=== PATIENT | male | born 1970 | race African-American/Black ===

== ENCOUNTER 2023-02-27 12:33 | Inpatient (IN) | payer OTHER ==
[2023-02-27 14:59] VITALS: BMI 26.9
[2023-02-27] MEDS ORDERED: NALOXONE HCL 0.4 MG/ML VIAL IM PRN (15:22)
[2023-02-27] MEDS ORDERED: BENZONATATE 200 MG CAPSULE PO PRN (15:22)
[2023-02-27] MEDS ORDERED: IBUPROFEN 600 MG TABLET (FP) PO PRN (15:22)
[2023-02-27] MEDS ORDERED: LOPERAMIDE HCL 2 MG CAPSULE PO PRN (15:22)
[2023-02-27] MEDS ORDERED: MAGNESIUM HYDROX 2400MG/30ML ORAL SUSPENSION 30 ML CUP PO PRN (15:22)
[2023-02-27] MEDS ORDERED: POLYETHYLENE GLYCOL (HEALTHYLAX) 3350 17 GM PACKET PO PRN (15:22)
[2023-02-27] MEDS ORDERED: chlordiazePOXIDE HCL 25 MG CAPSULE PO PRN (15:22)
[2023-02-27] MEDS ORDERED: guaiFENesin 600 MG TABLET.ER (FP) PO PRN (15:22)
[2023-02-27] MEDS ORDERED: DICYCLOMINE HCL 10 MG CAPSULE PO PRN (15:22)
[2023-02-27] MEDS ORDERED: BENZOCAINE/MENTHOL (CHLORASEPTIC ) LOZENGE MM PRN (15:22)
[2023-02-27] MEDS ORDERED: ONDANSETRON *ODT* 4 MG TABLET SL PRN (15:22)
[2023-02-27] MEDS ORDERED: IBUPROFEN 400 MG TABLET (FP) PO PRN (15:22)
[2023-02-27] MEDS ORDERED: NALOXONE HCL (KLOXXADO) 8 MG SPRAY NS PRN (15:22)
[2023-02-27] MEDS ORDERED: BISMUTH SUBSALICYLATE 524 MG/30 ML PO PRN (15:22)
[2023-02-27] MEDS ORDERED: NICOTINE POLACRILEX 2 MG GUM BUC PRN (15:22)
[2023-02-27] MEDS ORDERED: MAG HYDROX/AL HYDROX/SIMETH 30 ML UNIT-DOSE CUP PO PRN (15:22)
[2023-02-27] MEDS ORDERED: chlordiazePOXIDE HCL 25 MG CAPSULE ONE (16:40)
[2023-02-27] MEDS: chlordiazePOXIDE HCL 25 MG CAPSULE PO SCH ×2 (16:45→22:19)
[2023-02-27] MEDS: amLODIPine BESYLATE 5 MG TABLET (FP) PO SCH (17:38)
[2023-02-27] MEDS: ACETAMINOPHEN 325 MG TABLET (FP) PO PRN (17:39)
[2023-02-27] MEDS: MELATONIN 5 MG TABLETS PO SCH (22:18)
[2023-02-27] MEDS: THIAMINE HCL 100 MG TABLET (FP) PO SCH (22:18)
[2023-02-28] MEDS: chlordiazePOXIDE HCL 25 MG CAPSULE PO SCH ×4 (05:20→22:06)
[2023-02-28] MEDS: amLODIPine BESYLATE 5 MG TABLET (FP) PO SCH (10:19)
[2023-02-28] MEDS: PRENATAL VITAMINS W/ FOLIC ACID TABLET (FP) PO SCH (10:19)
[2023-02-28] MEDS: LISINOPRIL 20 MG TABLET PO SCH (10:19)
[2023-02-28] MEDS: LORATADINE 10 MG TABLET PO SCH (10:19)
[2023-02-28 11:42] LABS: POTASSIUM 4.1 mmol/L (3.5-5.1)
[2023-02-28] MEDS: CITALOPRAM HYDROBROMIDE 20 MG TABLET PO SCH (11:43)
[2023-02-28 11:48] LABS: ALBUMIN 3.2 g/dl (3.4-5.0); BLOOD UREA NITROGEN 11.6 mg/dL (7-18); CALCIUM 9.1 mg/dL (8.5-10.1)
[2023-02-28 11:51] LABS: CREATININE 0.8 mg/dL (0.55-1.3)
[2023-02-28 11:52] LABS: HEMATOCRIT 35.6 % (35.4-49); HEMOGLOBIN 11.9 GM/dL (11.7-16.9); MCH 28.1 pg (25.7-33.7); MCHC 33.4 g/dl (32.0-35.9); MEAN CELL VOLUME 83.9 fl (80-96); MEAN PLT VOLUME 8.6 fl (7.5-11.1); PLATELET COUNT 268 10^3/uL (134-434); RBC 4.24 M/mm3 (4.00-5.60); RDW 14.8 % (11.9-15.9); WHITE BLOOD COUNT 3.6 K/mm3 (4.0-10.0)
[2023-02-28 11:53] LABS: BILIRUBIN,TOTAL 0.4 mg/dL (0.2-1)
[2023-02-28] MEDS: THIAMINE HCL 100 MG TABLET (FP) PO SCH (22:06)
[2023-02-28] MEDS: MELATONIN 5 MG TABLETS PO SCH (22:06)
[2023-02-28] MEDS: QUEtiapine FUMARATE 100 MG TABLET (FP) PO SCH (22:06)
[2023-03-01] MEDS: ACETAMINOPHEN 325 MG TABLET (FP) PO PRN (01:33)
[2023-03-01] MEDS: hydrOXYzine PAMOATE 25 MG CAPSULE (FP) PO PRN (01:34)
[2023-03-01] MEDS: METHOCARBAMOL 500 MG TABLET PO PRN (01:34)
[2023-03-01] MEDS: chlordiazePOXIDE HCL 25 MG CAPSULE PO SCH ×4 (05:41→22:02)
[2023-03-01] MEDS: CITALOPRAM HYDROBROMIDE 20 MG TABLET PO SCH (10:20)
[2023-03-01] MEDS: amLODIPine BESYLATE 5 MG TABLET (FP) PO SCH (10:20)
[2023-03-01] MEDS: LORATADINE 10 MG TABLET PO SCH (10:20)
[2023-03-01] MEDS: LISINOPRIL 20 MG TABLET PO SCH (10:20)
[2023-03-01] MEDS: PRENATAL VITAMINS W/ FOLIC ACID TABLET (FP) PO SCH (10:20)
[2023-03-01] MEDS: MELATONIN 5 MG TABLETS PO SCH (22:01)
[2023-03-01] MEDS: QUEtiapine FUMARATE 100 MG TABLET (FP) PO SCH (22:03)
[2023-03-01] MEDS: THIAMINE HCL 100 MG TABLET (FP) PO SCH (23:07)
[2023-03-02] MEDS ORDERED: chlordiazePOXIDE HCL 10 MG CAPSULE PO PRN
[2023-03-02] MEDS: chlordiazePOXIDE HCL 10 MG CAPSULE PO SCH ×4 (05:28→22:25)
[2023-03-02] MEDS: METHOCARBAMOL 500 MG TABLET PO PRN (05:30)
[2023-03-02] MEDS: hydrOXYzine PAMOATE 25 MG CAPSULE (FP) PO PRN (05:30)
[2023-03-02] MEDS: LORATADINE 10 MG TABLET PO SCH (10:10)
[2023-03-02] MEDS: CITALOPRAM HYDROBROMIDE 20 MG TABLET PO SCH (10:10)
[2023-03-02] MEDS: PRENATAL VITAMINS W/ FOLIC ACID TABLET (FP) PO SCH (10:13)
[2023-03-02] MEDS: QUEtiapine FUMARATE 100 MG TABLET (FP) PO SCH (22:25)
[2023-03-02] MEDS: MELATONIN 5 MG TABLETS PO SCH (22:25)
[2023-03-02] MEDS: THIAMINE HCL 100 MG TABLET (FP) PO SCH (22:25)
[2023-03-03] MEDS: chlordiazePOXIDE HCL 10 MG CAPSULE PO SCH ×2 (05:31→17:23)
[2023-03-03] MEDS: PRENATAL VITAMINS W/ FOLIC ACID TABLET (FP) PO SCH (10:37)
[2023-03-03] MEDS: CITALOPRAM HYDROBROMIDE 20 MG TABLET PO SCH (10:37)
[2023-03-03] MEDS: LORATADINE 10 MG TABLET PO SCH (10:38)
[2023-03-03] MEDS: hydrOXYzine PAMOATE 25 MG CAPSULE (FP) PO PRN ×2 (10:38→22:09)
[2023-03-03] MEDS: METHOCARBAMOL 500 MG TABLET PO PRN (10:38)
[2023-03-03] MEDS: amLODIPine BESYLATE 5 MG TABLET (FP) PO SCH (10:46)
[2023-03-03] MEDS: LISINOPRIL 20 MG TABLET PO SCH (10:46)
[2023-03-03 17:28] VITALS: RESP 17
[2023-03-03 21:30] VITALS: PULSE 68
[2023-03-03] MEDS: MELATONIN 5 MG TABLETS PO SCH (22:09)
[2023-03-03] MEDS: THIAMINE HCL 100 MG TABLET (FP) PO SCH (22:09)
[2023-03-03] MEDS: QUEtiapine FUMARATE 100 MG TABLET (FP) PO SCH (22:09)
[2023-03-04] MEDS ORDERED: chlordiazePOXIDE HCL 10 MG CAPSULE PO ONE (05:00)
[2023-03-04 06:17] VITALS: BP 106/66; TEMP 97.9
== END 2023-03-04 09:30 | disposition home or self-care (01) | DRG 774 ==
LOC: YASAS 12:33 → Y6N 16:29
PROVIDERS: ADMIT Allergy & Immunology; ATTEND Allergy & Immunology
PROC: HZ2ZZZZ Detoxification Services for Substance Abuse Treatment (ICD-10-PCS; principal; 2023-02-27)
DX: F10.230 Alcohol dependence with withdrawal, uncomplicated (principal); F14.20 Cocaine dependence, uncomplicated; F17.210 Nicotine dependence, cigarettes, uncomplicated; F25.1 Schizoaffective disorder, depressive type; F19.24 Other psychoactive substance dependence with psychoactive substance-induced mood disorder; F31.81 Bipolar II disorder; J30.89 Other allergic rhinitis
CPT/HCPCS: 36415; 80053; 85027; 86780; 87635; 87811; Q0162

== ENCOUNTER 2023-05-03 15:08 | Inpatient (IN) | payer OTHER ==
[2023-05-03 15:54] VITALS: BMI 27.2
[2023-05-03] MEDS ORDERED: DICYCLOMINE HCL 10 MG CAPSULE PO PRN (17:16)
[2023-05-03] MEDS ORDERED: MAG HYDROX/AL HYDROX/SIMETH 30 ML UNIT-DOSE CUP PO PRN (17:16)
[2023-05-03] MEDS ORDERED: LOPERAMIDE HCL 2 MG CAPSULE PO PRN (17:16)
[2023-05-03] MEDS ORDERED: BENZONATATE 200 MG CAPSULE PO PRN (17:16)
[2023-05-03] MEDS ORDERED: guaiFENesin 600 MG TABLET.ER (FP) PO PRN (17:16)
[2023-05-03] MEDS ORDERED: BENZOCAINE/MENTHOL (CHLORASEPTIC ) LOZENGE MM PRN (17:16)
[2023-05-03] MEDS ORDERED: ACETAMINOPHEN 325 MG TABLET (FP) PO PRN (17:16)
[2023-05-03] MEDS ORDERED: MAGNESIUM HYDROX 2400MG/30ML ORAL SUSPENSION 30 ML CUP PO PRN (17:16)
[2023-05-03] MEDS ORDERED: BISMUTH SUBSALICYLATE 524 MG/30 ML PO PRN (17:16)
[2023-05-03] MEDS ORDERED: IBUPROFEN 400 MG TABLET (FP) PO PRN (17:16)
[2023-05-03] MEDS ORDERED: IBUPROFEN 600 MG TABLET (FP) PO PRN (17:16)
[2023-05-03] MEDS ORDERED: POLYETHYLENE GLYCOL (HEALTHYLAX) 3350 17 GM PACKET PO PRN (17:16)
[2023-05-03] MEDS ORDERED: ONDANSETRON *ODT* 4 MG TABLET SL PRN (17:16)
[2023-05-03] MEDS ORDERED: diazePAM 5 MG TABLET PO PRN (17:18)
[2023-05-03] MEDS ORDERED: MELATONIN 5 MG TABLETS PO SCH (22:00)
[2023-05-03] MEDS: THIAMINE HCL 100 MG TABLET (FP) PO SCH (22:01)
[2023-05-03] MEDS: diazePAM 5 MG TABLET PO SCH (22:03)
[2023-05-04] MEDS: METHOCARBAMOL 500 MG TABLET PO PRN ×2 (05:27→22:00)
[2023-05-04] MEDS: diazePAM 5 MG TABLET PO SCH ×4 (05:27→22:02)
[2023-05-04 09:29] LABS: HEMOGLOBIN 12.1 GM/dL (11.7-16.9); MCH 28.1 pg (25.7-33.7); MCHC 33.6 g/dl (32.0-35.9); MEAN CELL VOLUME 83.5 fl (80-96); PLATELET COUNT 270 10^3/uL (134-434); RBC 4.32 M/mm3 (4.00-5.60); RDW 14.4 % (11.9-15.9); WHITE BLOOD COUNT 4.6 K/mm3 (4.0-10.0)
[2023-05-04 09:34] LABS: POTASSIUM 4.1 mmol/L (3.5-5.1)
[2023-05-04 09:52] LABS: CALCIUM 8.6 mg/dL (8.5-10.1)
[2023-05-04 09:53] LABS: ALBUMIN 3.2 g/dl (3.4-5.0); BLOOD UREA NITROGEN 17.2 mg/dL (7-18)
[2023-05-04 09:56] LABS: CREATININE 0.9 mg/dL (0.55-1.3)
[2023-05-04 09:57] LABS: BILIRUBIN,TOTAL 0.5 mg/dL (0.2-1)
[2023-05-04 09:58] LABS: TOT PROT 7.2 g/dl (6.4-8.2)
[2023-05-04] MEDS: PRENATAL VITAMINS W/ FOLIC ACID TABLET (FP) PO SCH (10:24)
[2023-05-04] MEDS: LORATADINE 10 MG TABLET PO SCH (10:24)
[2023-05-04] MEDS: amLODIPine BESYLATE 5 MG TABLET (FP) PO SCH (10:24)
[2023-05-04] MEDS: LISINOPRIL 20 MG TABLET PO SCH (10:24)
[2023-05-04] MEDS: CITALOPRAM HYDROBROMIDE 20 MG TABLET PO SCH (14:51)
[2023-05-04] MEDS: THIAMINE HCL 100 MG TABLET (FP) PO SCH (22:00)
[2023-05-04] MEDS: QUEtiapine FUMARATE 200 MG TABLET PO SCH (22:03)
[2023-05-05] MEDS: diazePAM 5 MG TABLET PO SCH ×3 (05:35→22:18)
[2023-05-05] MEDS: CITALOPRAM HYDROBROMIDE 20 MG TABLET PO SCH (09:57)
[2023-05-05] MEDS: amLODIPine BESYLATE 5 MG TABLET (FP) PO SCH (09:57)
[2023-05-05] MEDS: LORATADINE 10 MG TABLET PO SCH (09:57)
[2023-05-05] MEDS: LISINOPRIL 20 MG TABLET PO SCH (09:57)
[2023-05-05] MEDS: PRENATAL VITAMINS W/ FOLIC ACID TABLET (FP) PO SCH (09:58)
[2023-05-05] MEDS: HYDROCORTISONE 1% TOPICAL CREAM 30 GM TUBE TP SCH (10:57)
[2023-05-05] MEDS: QUEtiapine FUMARATE 200 MG TABLET PO SCH (22:18)
[2023-05-05] MEDS: THIAMINE HCL 100 MG TABLET (FP) PO SCH (22:18)
[2023-05-06] MEDS: diazePAM 5 MG TABLET PO SCH ×2 (05:13→17:10)
[2023-05-06 09:07] VITALS: RESP 18
[2023-05-06] MEDS: LORATADINE 10 MG TABLET PO SCH (10:15)
[2023-05-06] MEDS: LISINOPRIL 20 MG TABLET PO SCH (10:15)
[2023-05-06] MEDS: amLODIPine BESYLATE 5 MG TABLET (FP) PO SCH (10:16)
[2023-05-06] MEDS: HYDROCORTISONE 1% TOPICAL CREAM 30 GM TUBE TP SCH (10:16)
[2023-05-06] MEDS: CITALOPRAM HYDROBROMIDE 20 MG TABLET PO SCH (10:16)
[2023-05-06] MEDS: PRENATAL VITAMINS W/ FOLIC ACID TABLET (FP) PO SCH (10:16)
[2023-05-06] MEDS: THIAMINE HCL 100 MG TABLET (FP) PO SCH (22:11)
[2023-05-06] MEDS: QUEtiapine FUMARATE 200 MG TABLET PO SCH (22:11)
[2023-05-06] MEDS: METHOCARBAMOL 500 MG TABLET PO PRN (22:12)
[2023-05-07] MEDS ORDERED: diazePAM 5 MG TABLET PO ONE (06:00)
[2023-05-07 08:51] VITALS: BP 128/78; PULSE 75; TEMP 97.1
[2023-05-07] MEDS: LISINOPRIL 20 MG TABLET PO SCH (09:07)
[2023-05-07] MEDS: PRENATAL VITAMINS W/ FOLIC ACID TABLET (FP) PO SCH (09:07)
[2023-05-07] MEDS: LORATADINE 10 MG TABLET PO SCH (09:08)
[2023-05-07] MEDS: amLODIPine BESYLATE 5 MG TABLET (FP) PO SCH (09:08)
[2023-05-07] MEDS: CITALOPRAM HYDROBROMIDE 20 MG TABLET PO SCH (09:08)
[2023-05-07] MEDS: HYDROCORTISONE 1% TOPICAL CREAM 30 GM TUBE TP SCH (09:08)
== END 2023-05-07 10:04 | disposition home or self-care (01) | DRG 774 ==
LOC: YASAS 15:08 → Y6N 17:46
PROVIDERS: ADMIT Allergy & Immunology; ATTEND Surgery
PROC: HZ2ZZZZ Detoxification Services for Substance Abuse Treatment (ICD-10-PCS; principal; 2023-05-03)
DX: F10.230 Alcohol dependence with withdrawal, uncomplicated (principal); F14.20 Cocaine dependence, uncomplicated; F17.210 Nicotine dependence, cigarettes, uncomplicated; F19.280 Other psychoactive substance dependence with psychoactive substance-induced anxiety disorder; F19.282 Other psychoactive substance dependence with psychoactive substance-induced sleep disorder; F19.24 Other psychoactive substance dependence with psychoactive substance-induced mood disorder; F31.9 Bipolar disorder, unspecified; F41.9 Anxiety disorder, unspecified; E78.5 Hyperlipidemia, unspecified; I10 Essential (primary) hypertension; E11.9 Type 2 diabetes mellitus without complications; L85.3 Xerosis cutis; Z62.810 Personal history of physical and sexual abuse in childhood
CPT/HCPCS: 36415; 80053; 85027; 86780; 87635

== ENCOUNTER 2023-07-27 15:06 | Inpatient (IN) | payer OTHER ==
[2023-07-27 18:18] VITALS: BMI 28.7
[2023-07-27] MEDS ORDERED: guaiFENesin 600 MG TABLET.ER (FP) PO PRN (21:43)
[2023-07-27] MEDS ORDERED: BENZOCAINE/MENTHOL (CHLORASEPTIC ) LOZENGE MM PRN (21:43)
[2023-07-27] MEDS ORDERED: NALOXONE HCL 0.4 MG/ML VIAL IM PRN (21:43)
[2023-07-27] MEDS ORDERED: LOPERAMIDE HCL 2 MG CAPSULE PO PRN (21:43)
[2023-07-27] MEDS ORDERED: NICOTINE POLACRILEX 4 MG GUM BUC PRN (21:43)
[2023-07-27] MEDS ORDERED: MAGNESIUM HYDROX 2400MG/30ML ORAL SUSPENSION 30 ML CUP PO PRN (21:43)
[2023-07-27] MEDS ORDERED: BENZONATATE 200 MG CAPSULE PO PRN (21:43)
[2023-07-27] MEDS ORDERED: DICYCLOMINE HCL 10 MG CAPSULE PO PRN (21:43)
[2023-07-27] MEDS ORDERED: ONDANSETRON *ODT* 4 MG TABLET SL PRN (21:43)
[2023-07-27] MEDS ORDERED: NALOXONE HCL (KLOXXADO) 8 MG SPRAY NS PRN (21:43)
[2023-07-27] MEDS ORDERED: IBUPROFEN 400 MG TABLET (FP) PO PRN (21:43)
[2023-07-27] MEDS ORDERED: BISMUTH SUBSALICYLATE 524 MG/30 ML PO PRN (21:43)
[2023-07-27] MEDS ORDERED: POLYETHYLENE GLYCOL (HEALTHYLAX) 3350 17 GM PACKET PO PRN (21:43)
[2023-07-27] MEDS ORDERED: ACETAMINOPHEN 325 MG TABLET (FP) PO PRN (21:43)
[2023-07-27] MEDS ORDERED: MAG HYDROX/AL HYDROX/SIMETH 30 ML UNIT-DOSE CUP PO PRN (21:43)
[2023-07-27] MEDS ORDERED: IBUPROFEN 600 MG TABLET (FP) PO PRN (21:43)
[2023-07-27] MEDS: MELATONIN 5 MG TABLETS PO SCH (23:00)
[2023-07-27] MEDS: THIAMINE HCL 100 MG TABLET (FP) PO SCH (23:00)
[2023-07-28] MEDS ORDERED: chlordiazePOXIDE HCL 25 MG CAPSULE PO PRN (05:57)
[2023-07-28] MEDS: chlordiazePOXIDE HCL 25 MG CAPSULE PO SCH ×3 (10:29→22:50)
[2023-07-28] MEDS: LISINOPRIL 20 MG TABLET PO SCH (10:29)
[2023-07-28] MEDS: amLODIPine BESYLATE 5 MG TABLET (FP) PO SCH (10:29)
[2023-07-28] MEDS: PRENATAL VITAMINS W/ FOLIC ACID TABLET (FP) PO SCH (10:29)
[2023-07-28 12:21] LABS: CHLORIDE 103 mmol/L (98-107); POTASSIUM 3.7 mmol/L (3.5-5.1); SODIUM 138 mmol/L (136-145)
[2023-07-28 12:27] LABS: ALBUMIN 2.9 g/dl (3.4-5.0); ANION GAP 5 mmol/L (4-13); BLOOD UREA NITROGEN 9.9 mg/dL (7-18); CALCIUM 9.4 mg/dL (8.5-10.1); CO2 30 mmol/L (21-32); GLUCOSE,RANDOM 128 mg/dL (74-106); SGOT/AST 56 U/L (15-37)
[2023-07-28 12:29] LABS: CREATININE 0.8 mg/dL (0.55-1.3)
[2023-07-28 12:30] LABS: SGPT/ALT 40 U/L (13-61)
[2023-07-28 12:31] LABS: TOT PROT 6.7 g/dl (6.4-8.2)
[2023-07-28 12:32] LABS: ALK PHOS 93 U/L (45-117)
[2023-07-28 12:34] LABS: BILIRUBIN,TOTAL 0.3 mg/dL (0.2-1)
[2023-07-28 12:43] LABS: HEMATOCRIT 36.4 % (35.4-49); HEMOGLOBIN 12.1 GM/dL (11.7-16.9); MCH 27.9 pg (25.7-33.7); MCHC 33.1 g/dl (32.0-35.9); MEAN CELL VOLUME 84.3 fl (80-96); MEAN PLT VOLUME 8.6 fl (7.5-11.1); PLATELET COUNT 258 10^3/uL (134-434); RBC 4.32 M/mm3 (4.00-5.60); RDW 17.2 % (11.9-15.9); WHITE BLOOD COUNT 4.8 K/mm3 (4.0-10.0)
[2023-07-28] MEDS ORDERED: QUEtiapine FUMARATE 100 MG TABLET (FP) PO SCH (22:00)
[2023-07-28] MEDS: MELATONIN 5 MG TABLETS PO SCH (22:50)
[2023-07-28] MEDS: THIAMINE HCL 100 MG TABLET (FP) PO SCH (22:50)
[2023-07-29] MEDS: chlordiazePOXIDE HCL 25 MG CAPSULE PO SCH ×2 (05:16→10:33)
[2023-07-29] MEDS ORDERED: CITALOPRAM HYDROBROMIDE 10 MG TABLET PO SCH (10:00)
[2023-07-29] MEDS: LISINOPRIL 20 MG TABLET PO SCH (10:32)
[2023-07-29] MEDS: amLODIPine BESYLATE 5 MG TABLET (FP) PO SCH (10:32)
[2023-07-29] MEDS: PRENATAL VITAMINS W/ FOLIC ACID TABLET (FP) PO SCH (10:32)
[2023-07-29 12:50] VITALS: BP 102/65; PULSE 66; RESP 16; TEMP 98.2
[2023-07-30] MEDS ORDERED: chlordiazePOXIDE HCL 25 MG CAPSULE PO SCH (05:00)
[2023-07-31] MEDS ORDERED: chlordiazePOXIDE HCL 10 MG CAPSULE PO PRN
[2023-07-31] MEDS ORDERED: chlordiazePOXIDE HCL 10 MG CAPSULE PO SCH (05:00)
[2023-08-01] MEDS ORDERED: chlordiazePOXIDE HCL 10 MG CAPSULE PO SCH (05:00)
[2023-08-02] MEDS ORDERED: chlordiazePOXIDE HCL 10 MG CAPSULE PO ONE (05:00)
== END 2023-07-29 13:45 | disposition left against medical advice (07) | DRG 770 ==
LOC: YASAS 15:06 → Y3N 22:37
PROVIDERS: ADMIT Allergy & Immunology; ATTEND Surgery
PROC: HZ2ZZZZ Detoxification Services for Substance Abuse Treatment (ICD-10-PCS; principal; 2023-07-27)
DX: F10.230 Alcohol dependence with withdrawal, uncomplicated (principal); F14.20 Cocaine dependence, uncomplicated; F17.210 Nicotine dependence, cigarettes, uncomplicated; F31.9 Bipolar disorder, unspecified; F19.24 Other psychoactive substance dependence with psychoactive substance-induced mood disorder; G47.00 Insomnia, unspecified; I10 Essential (primary) hypertension; E78.5 Hyperlipidemia, unspecified; Z87.891 Personal history of nicotine dependence; Z56.0 Unemployment, unspecified; Z59.00 Homelessness unspecified
CPT/HCPCS: 36415; 80053; 80307; 85027; 86780; 87635; Q0162

== ENCOUNTER 2025-02-26 14:21 | Inpatient (IN) | payer OTHER ==
[2025-02-26] MEDS ORDERED: NALOXONE (NARCAN) HCL 4 MG/0.1 ML SPRAY NS PRN (15:25)
[2025-02-26] MEDS ORDERED: MAG HYDROX/AL HYDROX/SIMETH 30 ML UNIT-DOSE CUP PO PRN (15:25)
[2025-02-26] MEDS ORDERED: BENZOCAINE/MENTHOL (CHLORASEPTIC ) LOZENGE MM PRN (15:25)
[2025-02-26] MEDS ORDERED: IBUPROFEN 400 MG TABLET (FP) PO PRN (15:25)
[2025-02-26] MEDS ORDERED: BENZONATATE 200 MG CAPSULE PO PRN (15:25)
[2025-02-26] MEDS ORDERED: LOPERAMIDE HCL 2 MG CAPSULE PO PRN (15:25)
[2025-02-26] MEDS ORDERED: POLYETHYLENE GLYCOL (HEALTHYLAX) 3350 17 GM PACKET PO PRN (15:25)
[2025-02-26] MEDS ORDERED: guaiFENesin 600 MG TABLET.ER (FP) PO PRN (15:25)
[2025-02-26] MEDS ORDERED: MAGNESIUM HYDROX 2400MG/30ML ORAL SUSPENSION 30 ML CUP PO PRN (15:25)
[2025-02-26 15:28] VITALS: BMI 23.7
[2025-02-26] MEDS: TUBERCULIN PPD 5 TU/0.1ML SYRINGE (IN PATIENT USE ONLY) ID ONE (19:49)
[2025-02-26] MEDS: PRENATAL VITAMINS W/ FOLIC ACID TABLET (FP) PO SCH (19:53)
[2025-02-26] MEDS: THIAMINE 100 MG TABLET PO SCH (21:36)
[2025-02-26] MEDS: MELATONIN 5 MG TABLETS PO SCH (21:36)
[2025-02-26] MEDS: LORATADINE 10 MG TABLET PO SCH (21:37)
[2025-02-26] MEDS ORDERED: ACAMPROSATE CALCIUM 333 MG TABLET.DR PO SCH (22:00)
[2025-02-27] MEDS: NALTREXONE HCL 50 MG TABLET PO SCH (09:37)
[2025-02-27 11:28] LABS: MCHC 32.2 g/dl (32.3-36.5); MEAN CELL VOLUME 88.0 fl (79.0-92.2); MEAN PLT VOLUME 10.9 fl (9.4-12.4); RDW 14.5 % (12.2-16.1)
[2025-02-27 11:46] LABS: URINE APPEARANCE CLEAR; URINE BILIRUBIN NEGATIVE (NEGATIVE); URINE COLOR YELLOW; URINE GLUCOSE (UA) NEGATIVE (NEGATIVE); URINE KETONE NEGATIVE (NEGATIVE); URINE LEUK ESTERASE NEGATIVE (NEGATIVE); URINE NITRITE NEGATIVE (NEGATIVE); URINE PROTEIN NEGATIVE (NEGATIVE); URINE UROBILINOGEN 0.2 mg/dL (0.2-1.0)
[2025-02-27 11:55] LABS: SGOT/AST 31 U/L (15-37); SGPT/ALT 40 U/L (13-61)
[2025-02-27 11:56] LABS: CREATININE 0.8 mg/dL (0.55-1.3)
[2025-02-27 11:57] LABS: CO2 32 mmol/L (21-32); GLUCOSE,RANDOM 96 mg/dL (74-106); TOT PROT 7.0 g/dl (6.4-8.2)
[2025-02-27 11:58] LABS: ALK PHOS 90 U/L (45-117)
[2025-02-27] MEDS: GABAPENTIN 300 MG CAPSULE PO SCH (15:04)
[2025-02-28] MEDS: ESCITALOPRAM OXALATE 10 MG TABLET PO SCH (10:22)
[2025-02-28] MEDS: MIRTAZAPINE 15 MG TABLET (FP) PO SCH (21:06)
[2025-03-02 16:41] LABS: SYPHILIS W/ RPR CONF NON-REACTIVE (NONREACTIVE)
[2025-03-02 17:16] LABS: HCV DIAGNOSTIC IN-HOUSE W/RFLX NON-REACTIVE (NONREACTIVE)
[2025-03-03] MEDS: IBUPROFEN 600 MG TABLET (FP) PO PRN (09:43)
[2025-03-07] MEDS: BENZOYL PEROXIDE 5% 60 GM GEL..GRAM. TP ONE (12:34)
[2025-03-08] MEDS: hydrOXYzine PAMOATE 25 MG CAPSULE (FP) PO PRN (06:02)
[2025-03-08] MEDS: KETOCONAZOLE 2% CREAM - 60GM TUBE TP SCH (10:30)
[2025-03-09] MEDS: BENZOYL PEROXIDE 5% 60 GM GEL..GRAM. TP SCH (21:10)
[2025-03-12] MEDS: ACETAMINOPHEN 325 MG TABLET (FP) PO PRN (12:47)
[2025-03-13 05:43] VITALS: RESP 16
[2025-03-14 05:39] VITALS: BP 137/88; PULSE 86; TEMP 97.3
== END 2025-03-14 09:34 | disposition home or self-care (01) | DRG 772 ==
LOC: YASAS 14:21 → Y3NR 19:20 → Y3W 02-27 11:16 → Y5N 02-27 11:40 → Y3W 02-27 11:42
PROVIDERS: ADMIT Family Medicine; ATTEND Psychiatry & Neurology Pain Medicine
PROC: HZ42ZZZ Group Counseling for Substance Abuse Treatment, Cognitive-Behavioral (ICD-10-PCS; principal; 2025-02-26)
DX: F10.20 Alcohol dependence, uncomplicated (principal); F14.20 Cocaine dependence, uncomplicated; F12.20 Cannabis dependence, uncomplicated; F31.9 Bipolar disorder, unspecified; F19.282 Other psychoactive substance dependence with psychoactive substance-induced sleep disorder; F19.280 Other psychoactive substance dependence with psychoactive substance-induced anxiety disorder; F19.24 Other psychoactive substance dependence with psychoactive substance-induced mood disorder; E78.2 Mixed hyperlipidemia; I10 Essential (primary) hypertension; E11.59 Type 2 diabetes mellitus with other circulatory complications; Z87.891 Personal history of nicotine dependence; Z59.00 Homelessness unspecified
CPT/HCPCS: 36415; 80053; 80305; 80307; 81003; 82962; 85027; 86780; 86803; 87811; 93005; 93010